=== PATIENT | male | born 1950 | race Caucasian/White ===

== ENCOUNTER 2025-07-03 19:39 | Emergency (ER) | payer BC, OTHER ==
[~2025-07-03] VITALS: Ht 167.6 cm; Wt 73.0 kg
[2025-07-03 19:45] VITALS: BP 172/87; PULSE 87; RESP 16; TEMP 97.9; O2SAT 99
[2025-07-03] MEDS: ACETAMINOPHEN 325MG TABLET PO ONE (22:12)
[2025-07-03] MEDS: LIDOCAINE 5% PATCH TOP STA (22:14)
== END 2025-07-03 22:19 | disposition left against medical advice (07) ==
LOC: ER 19:39
DX: S29.8XXA Other specified injuries of thorax, initial encounter (principal); S49.92XA Unspecified injury of left shoulder and upper arm, initial encounter; E78.00 Pure hypercholesterolemia, unspecified; W01.0XXA Fall on same level from slipping, tripping and stumbling without subsequent striking against object, initial encounter; Y93.89 Activity, other specified; Y92.89 Other specified places as the place of occurrence of the external cause; Y99.8 Other external cause status
CPT/HCPCS: 72128; 73030; 99284